=== PATIENT | female | born 1965 | race Caucasian/White ===

== ENCOUNTER 2021-08-25 16:28 | Outpatient (CLI) | payer OTHER ==
--- NOTE | 2021-08-25 21:27 | XRAY Report ---
PROCEDURE: Foot 3 View LT INDICATIONS: LEFT FOOT PAIN TECHNIQUE: 3 views of the foot were acquired. COMPARISON: None FINDINGS: Bones: No fractures or dislocations. No suspicious bony lesions. Scattered minimal early IP arthri tic narrowing. Small calcaneal spur. Soft tissues: No tibiotalar joint effusion. Achilles tendon appears normal. IMPRESSION: Minimal degenerative change. No visualized acute fracture or dislocation. However, occult injury roger ot be excluded. Recommend short interval imaging follow-up in 7-10 days as clinically indicated for a dditional evaluation. Reviewed by: Dinora García MD on 08/25/2021 9:25 PM PST Approved by: Dinora García MD on 08/25/2021 9:25 PM [facility] Station ID: [id number]
== END 2021-08-25 16:29 | disposition home or self-care (01) ==
LOC: DI 16:28
PROVIDERS: ATTEND Podiatrist
DX: M19.072 Primary osteoarthritis, left ankle and foot (principal)